=== PATIENT | male | born 1955 | race Caucasian/White ===

== ENCOUNTER 2016-08-23 17:06 | Outpatient (CLI) | payer BC ==
--- NOTE | 2016-08-23 18:25 | DIAGNOSTIC IMAGING REPORT ---
PROCEDURE: US NONVASCULAR EXTREMITY-RIGHT INDICATION: RIGHT AXILLARY MASS TECHNIQUE: Choe scale and color Doppler sonographic images of the right axilla were obtained COMPARISON: None. FINDINGS: There is a well-circumscribed 3.1 x 0.8 x 1.2 cm mildly lobulated benign lipoma in the right axilla. No evidence of underlying abnormality. IMPRESSION: 1. There is a 3.1 x 0.8 x 1.2 cm benign lipoma in the right axilla.
--- NOTE | 2016-08-23 18:38 | DIAGNOSTIC IMAGING REPORT ---
PROCEDURE: US SOFT TISSUE THYR/NECK/HEAD INDICATION: Palpable area left neck. TECHNIQUE: Choe scale and color Doppler sonographic images of the thyroid gland were obtained. COMPARISON: None. FINDINGS: There is a mildly prominent left upper neck or jugulodigastric lymph node (1.7 x 1.3 x 0.8 cm), with normal internal architecture, and this appears to account for the palpable area. There are two smaller lymph nodes in the right upper neck (0.6 cm). RIGHT LOBE: Right lobe of the thyroid gland is of normal size. (5.5 x 2.5 x 2.3 cm). There are two small isoechoic nodules in the mid right lobe (9 mm, 11 mm) compatible with small benign adenomas. LEFT LOBE: Left lobe of the thyroid gland is normal (4.9 x 2.4 x 1.7 cm). No evidence of left thyroid nodule. ISTHMUS: The isthmus is normal (0.3 cm). IMPRESSION: 1. There is a mildly prominent 1.7 cm left upper neck lymph node which appears to account for the palpable area. Overall findings suggests this represents a reactive/inflammatory lymph node. Neoplastic lymph node seems less likely. Nevertheless, early ultrasound after the patient's acute illness (3-4 weeks) is recommended to confirm resolution. 2. Normal size thyroid gland with two small right nodules (11 mm, 9 mm) most consistent with benign adenomas. Early follow-up thyroid ultrasound in 6 months is recommended to confirm stability. 3. Findings discussed with Dr. Codey Henriquez.
== END 2016-08-23 23:00 ==
LOC: US SRH 17:06
DX: D17.21 Benign lipomatous neoplasm of skin and subcutaneous tissue of right arm (principal); D34 Benign neoplasm of thyroid gland